=== PATIENT | male | born 1990 | race Caucasian/White ===

== ENCOUNTER 2018-01-08 18:12 | Emergency (ER) | payer OTHER ==
--- NOTE | 2018-01-08 20:10 | ED ---
HPI Chest Pain - HPI Summary HPI Summary: This is scribe Oliver Martino documenting for attending Dr. Khoa Lima MD. A 27 y/o male presents to ED c/o of left-sided chest tightness reaching 1/10 in severity. Currently the patient feels fine and has no chest tightness/pain. According to the patient, he started experiencing left-sided chest tightness around noon time. He initially felt the tightness when he was on the bus to go to work at [employer]. Additionally he felt a muscle twitch on the left side. The pain was intermittent through the early afternoon (couple hours, waxing and waning) even when he was sitting at his desk engaging in no extraneous activity. The pain was especially apparent when breathing. Pt denies any dizziness, N/V, abdominal pain, SOB or cough, however, for the past couple days he has had a runny nose. He noted that before the onset of pain, he has been experiencing for the past 3 night chest tightness making it difficult to sleep. He stated that he had difficulty getting comfortable and laying down. Additionally, he feels like he felt intermittent heart palpitation (heart fluttering) or muscle twitch (doesn't know how to distinguish, however, it feels weird to him). He was able to eventually fall asleep, however, he woke up a couple times from his sleep with CP which passed after some time. 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 He will be defending his thesis on Friday (01/13/2018). PMHx of tachycardia. One year ago, during a running session, the patient felt tachycardic in which he spoke to Dr. Francis. A 24-hour observation, stress test and ECHO was done, but came back negative. A couple months ago the same symptoms and another ECHO was done but again came back negative. - History of Current Complaint Chief Complaint: EDChestPainROMI Time Seen by Provider: 01/08/18 19:44 Hx Obtained From: Patient Onset/Duration: Started Hours Ago - noonish Timing: Intermittent Initial Severity: Mild Current Severity: None Pain Intensity: 1 Pain Scale Used: 0-10 Numeric Chest Pain Location: Left Anterior Chest Pain Radiates: No Character: Tightness Aggravating Factor(s): Deep Breaths Alleviating Factor(s): Nothing Associated Signs and Symptoms: Positive: Chest Pain. Negative: Dizziness, Shortness of Breath, Fever, Nausea, Cough, Abdominal Pain, Vomiting - Allergy/Home Medications Allergies/Adverse Reactions: Allergies Allergy/AdvReac Type Severity Reaction Status Date / Time No Known Allergies Allergy Verified 01/08/18 18:19 PMH/Surg Hx/FS Hx/Imm Hx Endocrine/Hematology History: Denies: Hx Diabetes Cardiovascular History: Denies: Hx Hypertension Infectious Disease History: No Infectious Disease History: Denies: Traveled Outside the [place] in Last 30 Days - Family History Known Family History: Positive: Other - Ovarian cancer (mother), colon cancer ( grandmother, mother side). - Social History Alcohol Use: None Substance Use Type: Reports: None Smoking Status (MU): Never Smoked Tobacco Review of Systems Negative: Fever Positive: Other - POSITIVE: Runny nose Positive: Chest Pain - TIGHTNESS Negative: Shortness Of Breath, Cough Negative: Abdominal Pain, Vomiting, Nausea Positive: Other - POSITIVE: Muscle twitches Neurological: Other - NEGATIVE: Dizziness All Other Systems Reviewed And Are Negative: Yes Physical Exam - Summary Physical Exam Summary: Appearance: Well-appearing, Well-nourished, lying in bed comfortably. Patient is tall and slender, no arachnodactyly. Skin: Warm, dry, no obvious rash Eyes: sclera anicteric, no conjunctival pallor ENT: mucous membranes moist, pharynx appears normal Neck: Supple, nontender Respiratory: Clear to auscultation, no signs of respiratory distress Cardiovascular: Normal S1, S2. No murmurs. Normal distal pulses in tibial and radial bilaterally. Abdomen: Soft, nontender, normal active bowel sounds present Musculoskeletal: Normal, Strength/ROM Intact Neurological: A&Ox3, awake and alert, mentation is normal, speech is fluent and appropriate Psychiatric: affect is normal, does not appear anxious or depressed Triage Information Reviewed: Yes Vital Signs On Initial Exam: Initial Vitals Temp Pulse Resp BP Pulse Ox 97.3 F 76 18 143/78 100 01/08/18 18:14 01/08/18 18:14 01/08/18 18:14 01/08/18 18:14 01/08/18 18:14 Vital Signs Reviewed: Yes Diagnostics - Vital Signs Vital Signs Temp Pulse Resp BP Pulse Ox 01/08/18 18:14 97.3 F 76 18 143/78 100 - Laboratory Lab Statement: Any lab studies that have been ordered have been reviewed, and results considered in the medical decision making process. - Radiology CXR Radiology Interpretation Completed By: ED Physician - Normal. - EKG 1823 Cardiac Rate: NL - 60 BPM EKG Rhythm: Sinus Rhythm - NSR at 60 BPM, P waves, QRS complex, and T waves are within normal limits, T waves and intervals are normal, no ischemic changes. This is a normal EKG. Chest Pain Course/Dx - Diagnoses Provider Diagnoses: Atypical chest pain Discharge - Sign-Out/Discharge Documenting (check all that apply): Patient Departure - DISCHARGE - Discharge Plan Condition: Good Disposition: HOME Patient Education Materials: Chest Wall Pain (ED) Referrals: Chetan Francis MD [Primary Care Provider] - - Billing Disposition and Condition Condition: GOOD Disposition: Home
[2018-01-08 21:55] VITALS: BP 119/62
--- NOTE | 2018-01-09 07:33 | RAD ---
HISTORY: chest pain, left side COMPARISONS: None VIEWS: 5: Frontal dual-energy and lateral views of the chest. FINDINGS: CARDIOMEDIASTINAL SILHOUETTE: The cardiomediastinal silhouette is normal. GEORGE: The george are normal. PLEURA: The costophrenic angles are sharp. No pleural abnormalities are noted. LUNG PARENCHYMA: The lungs are clear. ABDOMEN: The upper abdomen is clear. There is no subphrenic gas. BONES AND SOFT TISSUES: No bone or soft tissue abnormalities are noted. OTHER: None. IMPRESSION: NO ACTIVE CARDIOPULMONARY DISEASE. R0
== END 2018-01-08 21:54 | disposition home or self-care (01) ==
LOC: ED 18:12
DX: R07.89 Other chest pain (principal)
CPT/HCPCS: 36415; 71046; 85379; 93005; 99282

== ENCOUNTER 2018-01-12 17:13 | Emergency (ER) | payer OTHER ==
--- NOTE | 2018-01-12 18:09 | ED ---
HPI Chest Pain - HPI Summary HPI Summary: This is scribe Bimal Gloria documenting for attending Marbin Haro MD. Patient is a 27 y/o M w/ c/o chest pain. The patient was here four days ago for chest pain. He states today he had shooting/stabbing chest pain in the mid- sternal area and back discomfort. He states that he was informed to return to the ED for this combination of Sx. He states chest pain lasted a few seconds at around 1630. Chest pain is currently not present. Deep breaths do not reproduce pain, and nothing is noted to aggravate/alleviate Sx on triage. PMHx of tachycardia and mitral valve regurgitation is reported. One year ago, during a running session, the patient felt his heart racing and went to see Dr. Francis. A 24-hour observation, stress test and echo test was done, but no abnormal findings were noted. A couple months ago, the same Sx presented with same results. Home medications and allergies are reviewed. - History of Current Complaint Chief Complaint: EDChestWallPain Time Seen by Provider: 01/12/18 17:59 Hx Obtained From: Patient Onset/Duration: Started Hours Ago - onset 1630, Resolved Timing: Lasting Seconds Current Severity: None - in the room, pain is denied Pain Intensity: 0 Pain Scale Used: 0-10 Numeric Chest Pain Location: Mid Sternal Chest Pain Radiates: Yes Chest Pain Radiates To:: Back Character: Sharp/Stabbing, Other: - shooting Aggravating Factor(s): Nothing Alleviating Factor(s): Nothing Associated Signs and Symptoms: Positive: Chest Pain - since resolved, Back Pain - described as discomfort - Allergy/Home Medications Allergies/Adverse Reactions: Allergies Allergy/AdvReac Type Severity Reaction Status Date / Time No Known Allergies Allergy Verified 01/08/18 18:19 Home Medications: Home Medications Ciclopirox Olamine [Ciclopirox] 0.77 % TOPICAL DAILY PRN 01/12/18 [History Confirmed 01/12/18] PMH/Surg Hx/FS Hx/Imm Hx Endocrine/Hematology History: Denies: Hx Diabetes Cardiovascular History: Denies: Hx Hypertension - Immunization History Immunizations Up to Date: Yes Infectious Disease History: No Infectious Disease History: Denies: Traveled Outside the [place] in Last 30 Days - Family History Known Family History: Positive: Other - Ovarian cancer (mother), colon cancer ( grandmother, mother side). - Social History Alcohol Use: Occasionally Substance Use Type: Reports: None Smoking Status (MU): Never Smoked Tobacco Review of Systems Positive: Chest Pain - since resolved Positive: Other - back discomfort, no longer present All Other Systems Reviewed And Are Negative: Yes Physical Exam - Summary Physical Exam Summary: VITAL SIGNS: Reviewed. GENERAL: Patient is a well-developed and nourished male who is lying comfortable in the stretcher. Patient is not in any acute respiratory distress. HEAD AND FACE: No signs of trauma. No ecchymosis, hematomas or skull depressions. No sinus tenderness. EYES: PERRLA, EOMI x 2, No injected conjunctiva, no nystagmus. EARS: Hearing grossly intact. Ear canals and tympanic membranes are within normal limits. MOUTH: Oropharynx within normal limits. NECK: Supple, trachea is midline, no adenopathy, no JVD, no carotid bruit, no c- spine tenderness, neck with full ROM. CHEST: Symmetric, no tenderness at palpation LUNGS: Clear to auscultation bilaterally. No wheezing or crackles. CVS: Regular rate and rhythm, S1 and S2 present, no murmurs or gallops appreciated. ABDOMEN: Soft, non-tender. No signs of distention. No rebound no guarding, and no masses palpated. Bowel sounds are normal. EXTREMITIES: FROM in all major joints, no edema, no cyanosis or clubbing. NEURO: Alert and oriented x 3. No acute neurological deficits. Speech is normal and follows commands. SKIN: Dry and warm Triage Information Reviewed: Yes Vital Signs On Initial Exam: Initial Vitals Temp Pulse Resp BP Pulse Ox 97.6 F 74 16 152/80 98 01/12/18 17:16 01/12/18 17:16 01/12/18 17:16 01/12/18 17:16 01/12/18 17:16 Vital Signs Reviewed: Yes Diagnostics - Vital Signs Vital Signs Temp Pulse Resp BP Pulse Ox 01/12/18 17:16 97.6 F 74 16 152/80 98 - Laboratory Result Diagrams: 01/12/18 18:22 01/12/18 18:22 Lab Statement: Any lab studies that have been ordered have been reviewed, and results considered in the medical decision making process. - Radiology CXR Xray Interpretation: No Acute Changes Radiology Interpretation Completed By: Radiologist - No active cardiopulmonary disease is noted. This report was reviewed by ED physician. - EKG 1940 Cardiac Rate: Bradycardia - Rate of 52 BPM EKG Rhythm: Sinus Bradycardia ST Segment: Normal EKG Interpretation: normal axis Re-Evaluation - Re-Evaluation First Eval Re-Evaluation Time: 20:29 Comment: Discussed results of labs and tests. Patient will be discharged to home and follow up with PCP. Patient is agreeable with this plan. Chest Pain Course/Dx - Course Assessment/Plan: Blood test results without any significant abnormality. Troponin is 0.00. EKG shows a sinus rhythm with no ST elevation. 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 He has an appointment tomorrow in the morning. I have no suspicion for a PE since the patient is not hypoxic or tachycardic. I discussed all the findings and test results with the patient. Patient was instructed to return to the emergency room immediately if any of the symptoms return or worsens. Plan of care was discussed with the patient and understands and agrees. All questions were answered at patient satisfaction. There were no further complaints or concerns. Lung exam before discharge: CTA B/L. Good air exchange. No wheezing or crackles heard. CVS: S1 and S2 present. No murmurs appreciated. Patient is alert and oriented x 3. Patient is hemodynamically stable. Patient will be discharged home with follow up PCP in the next 2-3 days - Chest Pain Differential Diagnosis/HQI/PQRI: Acute UT, ACS, Angina, CHF, Chest Wall, GI Disease, Lower Respiratory Infection - Diagnoses Provider Diagnoses: Atypical chest pain Discharge - Sign-Out/Discharge Documenting (check all that apply): Patient Departure - discharge - Discharge Plan Condition: Stable Disposition: HOME Patient Education Materials: Chest Pain (ED) Referrals: Chetan Francis MD [Primary Care Provider] - 3 Days Additional Instructions: Return to ED for any new or worsening symptoms. - Billing Disposition and Condition Condition: STABLE Disposition: Home
[2018-01-12 18:28] LABS: ABS Basophils 0.1 10^3/ul (0-0.2); ABS Eosinophils 0 10^3/ul (0-0.6); ABS Lymphocytes 1.3 10^3/ul (1.0-4.8); ABS Monocytes 0.5 10^3/ul (0-0.8); ABS Neutrophils 6.3 10^3/ul (1.5-7.7); ABS Nucleated RBC 0 10^3/ul; Eosinophil % 0.2 % (0-6); Hematocrit 43 % (42-52); Hemoglobin 15.1 g/dl (14.0-18.0); Lymphocyte % 15.7 % (25-47); Mean Corpuscular HGB Conc 35 g/dl (31-36); Mean Corpuscular Hemoglobin 31 pg (27-31); Mean Corpuscular Volume 88 fL (80-94); Mean Platelet Volume 8.5 um3 (7.4-10.4); Nucleated Red Blood Cells % 0; Platelet Count 197 10^3/ul (150-450); Red Blood Count 4.94 10^6/ul (4.00-5.40); Red Cell Distribution Width 13 % (10.5-15); White Blood Count 8.2 10^3/ul (3.5-10.8)
--- NOTE | 2018-01-12 18:48 | RAD ---
Indication: Chest pain. Single frontal view of the chest performed at 1829 hours was reviewed. Comparison is made with previous exam dated January 08, 2018. No mediastinal shift is noted. Heart is of normal size and configuration. Lung bonds appear clear. Lung bonds appear hyperinflated. No evidence of pneumothorax is noted. IMPRESSION: NO ACTIVE CARDIOPULMONARY DISEASE IS NOTED.
[2018-01-12 19:17] LABS: EGFR Non-African American 93.3 (>60)
[2018-01-12 20:43] VITALS: BP 124/69
== END 2018-01-12 20:30 | disposition home or self-care (01) ==
LOC: ED 17:13
DX: R07.89 Other chest pain (principal); M54.9 Dorsalgia, unspecified; R00.1 Bradycardia, unspecified
CPT/HCPCS: 36415; 71045; 80053; 84484; 85025; 93005; 99282